=== PATIENT | male | born 1995 | race African-American/Black ===

== ENCOUNTER 2017-04-30 17:11 | Emergency (ER) | payer OTHER ==
[2017-04-30 17:43] LABS: URINE SOURCE CLEAN CATCH
[2017-04-30 17:48] LABS: URINE APPEARANCE CLEAR; URINE BILIRUBIN NEG (NEG); URINE BLOOD NEG (NEG); URINE COLOR YELLOW; URINE GLUCOSE NEG (NEG); URINE KETONE NEG (NEG); URINE LEUKOCYTE ESTERASE NEG (NEG); URINE NITRATE NEG (NEG); URINE PH 5.5 (5-8); URINE PROTEIN NEG (NEG); URINE SPECIFIC GRAVITY 1.015 (1.003-1.035); URINE UROBILINOGEN 0.2 MG/DL (NEG)
[2017-04-30 17:51] LABS: CULTURE INDICATED? NO
== END 2017-04-30 22:02 | disposition home or self-care (01) ==
LOC: CED 17:11
DX: M54.5 Low back pain (principal); E86.0 Dehydration; T67.5XXA Heat exhaustion, unspecified, initial encounter
CPT/HCPCS: 81003; 99284